=== PATIENT | male | born 1945 | race Caucasian/White ===

== ENCOUNTER 2018-08-08 20:45 | Emergency (ER) | payer MEDICARE ==
[~2018-08-08] VITALS: Ht 170.2 cm; Wt 74.4 kg
[~2018-08-08 20:45] MED LIST: ASPI325EC PO; ASPI81EC PO; ATEN50 PO; CALC1.25T PO; CEPH500 PO; CHOL10002 PO; Cardizem CD 12120 MG PO; Desyrel50 MG; HYDACE10B PO; HYDACE5 PO; LAVAP17G PO; MEDICAL MARIJUANA; OMEP20ER PO; OXYC10ER PO; Omeprazole20 M1 PO; PROBIOTICS; PROM25 PO; SUCR1; SUCR1 PO; Ultram50 MG PO
[2018-08-08 21:11] LABS: BASOPHILS ABSOLUTE AUTO 0.02 K/mm3 (0.00-0.23); BASOPHILS PERCENT AUTO 0 % (0-2); EOSINOPHILS ABSOLUTE AUTO 0.12 K/mm3 (0.00-0.68); EOSINOPHILS PERCENT AUTO 2 % (0-6); Hematocrit 40.3 % (37.0-53.0); IMMATURE GRAN ABSOLUTE AUTO 0.01 K/mm3 (0.00-0.10); IMMATURE GRAN PERCENT AUTO 0 % (0-1); LYMPHOCYTES ABSOLUTE AUTO 1.77 K/mm3 (0.84-5.20); LYMPHOCYTES PERCENT AUTO 31 % (21-46); MONOCYTES ABSOLUTE AUTO 0.55 K/mm3 (0.16-1.47); MONOCYTES PERCENT AUTO 10 % (4-13); Mean Corpuscular HGB 31.5 pg (26.0-34.0); Mean Corpuscular HGB Conc 34.7 g/dL (31.5-36.5); Mean Corpuscular Volume 91 fL (80-100); Mean Platelet Volume 11.2 fL (9.1-12.4); NEUTROPHILS ABSOLUTE AUTO 3.33 K/mm3 (1.96-9.15); NEUTROPHILS PERCENT AUTO 57 % (41-73); Platelet Count 177 K/mm3 (150-400); RDW Coefficient Variation 12.8 % (11.7-14.2); RDW Standard Deviation 42.5 fL (35.1-46.3); Red Blood Cell Count 4.45 M/mm3 (4.30-5.90)
[2018-08-08] MEDS ORDERED: ABAT250V IV (21:20)
[2018-08-08 21:31] LABS: Alanine Aminotransfer (ALT/SGP 22 U/L (12-78); Albumin, Blood 3.9 g/dL (3.4-5.0); Albumin/Globulin Ratio 1.3 (0.8-1.8); Alk Phos 64 U/L (50-136); Anion Gap 6 mmol/L (6-16); Aspartate Aminotrans (AST/SGOT 26 U/L (12-37); Bilirubin, Total 0.6 mg/dL (0.1-1.0); Blood Urea Nitrogen 20 mg/dL (8-24); Bun/Creatinine Ratio 25.1 (12.0-20.0); CO2, Blood 27 mmol/L (21-32); Calcium, Blood 8.6 mg/dL (8.5-10.1); Chloride, Blood 106 mmol/L (98-108); Globulin, Blood 3.1 g/dL (2.2-4.0); Glomerular Filtration Rate >60 (60-); Glucose, Blood 96 mg/dL (70-99); Potassium, Blood 4.3 mmol/L (3.5-5.5); Sodium, Blood 139 mmol/L (136-145); Troponin I <0.015 ng/mL (0.000-0.040)
[2018-09-26] MEDS ORDERED: ELIQUIS2.5 MG PO (16:03)
[2018-09-26] MEDS ORDERED: TAMS.4ER PO (16:03)
[2018-09-26] MEDS ORDERED: ATOR40TA PO (16:04)
== END 2018-08-08 22:13 | disposition home or self-care (01) ==
LOC: ER 20:45
PROVIDERS: Emergency Medicine
DX: R07.9 Chest pain, unspecified (principal); R00.1 Bradycardia, unspecified; Z88.8 Allergy status to other drugs, medicaments and biological substances; Z88.5 Allergy status to narcotic agent; Z79.899 Other long term (current) drug therapy; I10 Essential (primary) hypertension
CPT/HCPCS: 36415; 71046; 80053; 84484; 85025; 93005; 93010; 99285-25

== ENCOUNTER 2018-09-29 06:20 | Day surgery (SDC) | payer MEDICARE ==
[~2018-09-29] VITALS: Ht 167.6 cm; Wt 76.4 kg
[~2018-09-29 06:20] MED LIST changes: +ABAT250V IV; +ATOR40TA PO; +ELIQUIS2.5 MG PO; +TAMS.4ER PO
--- NOTE | 2018-09-29 14:01 | NUR ---
PT TR BAND COMPLETELY DEFLATED W/O OZZING NOTED. TR BAND AND ARM BOARD LEFT IN PLACE AND WILL MONITOR BEFORE CHANGEING TO CLEAR DSG. PT IS A/O AND PO PAIN MEDS BEGINING TO ASSIST SHOULDER PAIN. DENIES CHEST DISCOMFORT. BP IS SL ELEVATED AND WILL CONT TO MONITOR.
--- NOTE | 2018-09-29 15:30 | NUR ---
PT UP TO TOILET INDEPENDENTLY EXCEPT FOR ASSIST WITH LINES. DENIES PAIN AND DISTRESS AT TR SITE, SITE CLEAR, ARM BOARD ON AND PT IS UP IN CHAIR.
--- NOTE | 2018-09-29 16:58 | NUR ---
PT SITTING UP IN CHAIR FOR HOUR OR SO AND THEN INDEPENDENTLY RETURNED TO BED. TR SITE IS INTACT AND ARM BOARD IS IN PLACE. PT BP IS NOTED TO BE SL ELEVATED AND WILL CALL AND REPORT TO DR PELAEZ. PT REMAINS ASYMTOMATIC.
--- NOTE | 2018-09-29 18:09 | NUR ---
R TR IS NOTED WITH SMALL SOFT SWELLING AT THE SITE. NO OOZING OR HARD HEMATOMA NOTED. SMALL GAUZE PLACE SOFT BACK PRESSURE AND WILL MONIOR. PT VS NOTED AND HAVE IMPROVED W/O MEDICATION INTERVENTION. NO S/S OF PAIN OR DISTRESS.
--- NOTE | 2018-09-29 19:30 | NUR ---
ASSUME CARE; REPORT RECIEVED FROM OFF GOING RN SERGEY. MONITOR INTACT SHOWING SINUS LUI-SINUS RHYTHM. HEART RATE 50'S-60'S. DENIES DISCOMFORT. LUNG SOUNDS CLEAR RESPIRATIONS REGULAR AND EASY ON ROOM AIR. TR BAND SITE CLEAR/INTACT WITH OCCULSIVE DRESSING INTACT. ABDOMEN SOFT WITH BOWEL SOUNDS FOUR QUADS. VOIDS KAREN URINE. GAIT STEADY IN ROOM. PEDAL PULSES PRESENT NO EDEMA NOTED. AT BEDSIDE SPENDING NOC IN ROOM. CONTINUE TO MONITOR AND REPORT CHANGE IN PATIENT CONDITION.
--- NOTE | 2018-09-30 06:15 | NUR ---
SHIFT SUMMARY; RESTS QUIETLY WHEN UNDISTURBED MONITOR INTACT SHOWING SINUS LUI SINUS RHYTHM. HEART RATE 46-60'S. DENIES DISCOMFORT. TR BAND SITE CLEAR SOFT WITH OCCULSIVE DRESSING IN PLACE. LUNG SOUNDS CLEAR RESPIRATIONS REGULAR AND EASY ON ROOM AIR. SPO2 95-98%. ABDOMEN SOFT WITH BOWEL SOUNDS FOUR QUADS. VOIDS KAREN URINE PER URINAL GAIT STEADY IN ROOM AND TO TOILET. ON COT IN ROOM ATTENTIVE TO NEEDS CARES. CONTINUE TO MONITOR AND REPORT CHANGE IN PATIENT CONDITION.
[2018-09-30] MEDS ORDERED: ELIQUIS2.5 MG PO (09:49)
[2018-09-30] MEDS ORDERED: PANT20 PO (09:51)
[2018-09-30] MEDS ORDERED: CLOP75 PO (09:51)
[2018-09-30] MEDS ORDERED: Aspirin EC81 MG PO (10:09)
--- NOTE | 2018-09-30 10:24 | NUR ---
PT D/C INSTRUCTIONS GIVE, MEDICATION CHANGES INSTRUCTED, IV D/C INTACT AND SITE W/O OOZING, R TR WITH SOFT VERY SLIGHT SWELLING AND NO DETECTED HEMATOMA. PT AWARE OF BLEEDING POTENTIAL AND NEW MEDICATION. MEDS CALLED TO [facility]. PT W/C TO [facility] PER [facility] DIRECTOR [place] AND ATTENTING.
--- NOTE | 2018-09-30 10:33 | NUR ---
PT CARDIAC REFERAL CALLED IN AND MESSAGE LEFT ON PHONE.
--- NOTE | 2018-09-30 10:41 | NUR ---
LATE AM ASSESSMENT... PT HAS DENIES C.P. , SOB, AND R TR SITE IS INTACT AND PT PROTECTING SITE. PT ON RA W/O SOB, IN SB, VSS NOTED, PT IS VOIDING, HAS NO EDEMA AND HAS NOT HAD ANY HEART BURN POST EQUIPMENT MONITOR PHOTOTYPESETTING. PT IS SB RHYTHM.
== END 2018-09-30 10:25 | disposition home or self-care (01) ==
LOC: MHTC 06:20 → ICUE 09:40 → ENPENDDIS 09-30 08:46 → MHTC 09-30 10:25
DX: I25.10 Atherosclerotic heart disease of native coronary artery without angina pectoris (principal); I48.0 Paroxysmal atrial fibrillation; I10 Essential (primary) hypertension; Z79.899 Other long term (current) drug therapy; Z79.01 Long term (current) use of anticoagulants; Z87.891 Personal history of nicotine dependence; Z88.1 Allergy status to other antibiotic agents; Z88.6 Allergy status to analgesic agent; Z88.5 Allergy status to narcotic agent; Z91.011 Allergy to milk products; Z91.048 Other nonmedicinal substance allergy status
CPT/HCPCS: 85347; 92978; 93458; 93571; 99152; 99153; C1725; C1753; C1769; C1874; C1887; C1894; C9113; C9600; J1644; J2250; J3010; J7030; Q9967

== ENCOUNTER 2018-10-06 10:51 | Emergency (ER) | payer MEDICARE ==
[~2018-10-06] VITALS: Ht 170.2 cm; Wt 72.6 kg
[~2018-10-06 10:51] MED LIST changes: +Aspirin EC81 MG PO; +CLOP75 PO; +PANT20 PO
[2018-10-06] MEDS ORDERED: TRAZ50 (12:11)
== END 2018-10-06 15:03 | disposition home or self-care (01) ==
LOC: ER 10:51
DX: R20.2 Paresthesia of skin (principal); I10 Essential (primary) hypertension; I25.10 Atherosclerotic heart disease of native coronary artery without angina pectoris; I48.91 Unspecified atrial fibrillation; Z98.61 Coronary angioplasty status; Z79.899 Other long term (current) drug therapy; Z79.82 Long term (current) use of aspirin; Z79.02 Long term (current) use of antithrombotics/antiplatelets
CPT/HCPCS: 93931; 93971; 99284-25

== ENCOUNTER 2018-11-25 10:06 | Emergency (ER) | payer MEDICARE ==
[~2018-11-25] VITALS: Ht 170.2 cm; Wt 72.6 kg
[~2018-11-25 10:06] MED LIST changes: +TRAZ50
== END 2018-11-25 12:56 | disposition home or self-care (01) ==
LOC: ER 10:06
DX: R04.0 Epistaxis (principal); I10 Essential (primary) hypertension; I48.91 Unspecified atrial fibrillation; Z88.8 Allergy status to other drugs, medicaments and biological substances; Z91.011 Allergy to milk products; Z79.899 Other long term (current) drug therapy; Z79.01 Long term (current) use of anticoagulants; Z79.02 Long term (current) use of antithrombotics/antiplatelets; Z79.82 Long term (current) use of aspirin
CPT/HCPCS: 30901; 99283-25

== ENCOUNTER 2019-02-24 04:10 | Emergency (ER) | payer MEDICARE ==
[~2019-02-24] VITALS: Ht 170.2 cm; Wt 74.8 kg
[~2019-02-24 04:10] MED LIST changes: -HYDACE10B PO; +NORCO 10-325 T1 EACH PO; -TRAZ50; +TRAZ50 PO
[2019-02-24] MEDS ORDERED: Sotalol80 MG PO (04:22)
== END 2019-02-24 05:20 | disposition home or self-care (01) ==
LOC: ER 04:10
DX: R04.0 Epistaxis (principal); I48.91 Unspecified atrial fibrillation; I10 Essential (primary) hypertension; M19.90 Unspecified osteoarthritis, unspecified site; Z88.6 Allergy status to analgesic agent; Z88.8 Allergy status to other drugs, medicaments and biological substances; Z79.899 Other long term (current) drug therapy
CPT/HCPCS: 30903; 99283-25

== ENCOUNTER 2021-08-07 10:57 | Emergency (ER) | payer MEDICARE ==
[~2021-08-07] VITALS: Ht 170.2 cm; Wt 72.6 kg
[~2021-08-07 10:57] MED LIST changes: +ATEN100 PO; +Aspir 8181 MG PO; +HYDACE10B PO; +IRBE75 PO; -NORCO 10-325 T1 EACH PO; +PANT40 PO; +Sotalol80 MG PO; +Viagra100 MG PO
[2021-08-07] MEDS ORDERED: HYDR1TAB94 PO (12:05)
== END 2021-08-07 12:08 | disposition home or self-care (01) ==
LOC: ER 10:57
DX: S76.311A Strain of muscle, fascia and tendon of the posterior muscle group at thigh level, right thigh, initial encounter (principal); I10 Essential (primary) hypertension; Z79.82 Long term (current) use of aspirin; Z79.899 Other long term (current) drug therapy; Z95.5 Presence of coronary angioplasty implant and graft; Z87.891 Personal history of nicotine dependence; X58.XXXA Exposure to other specified factors, initial encounter
CPT/HCPCS: 99283

== ENCOUNTER 2024-03-30 14:01 | Emergency (ER) | payer OTHER ==
[~2024-03-30] VITALS: Ht 172.7 cm; Wt 74.8 kg
[~2024-03-30 14:01] MED LIST changes: +HYDR1TAB94 PO
[2024-03-30 14:38] LABS: BASOPHILS ABSOLUTE AUTO 0.01 K/mm3 (0.00-0.23); BASOPHILS PERCENT AUTO 0 % (0-2); EOSINOPHILS ABSOLUTE AUTO 0.11 K/mm3 (0.00-0.68); EOSINOPHILS PERCENT AUTO 2 % (0-6); Hematocrit 39.2 % (37.0-53.0); Hemoglobin 13.9 g/dL (13.5-17.5); IMMATURE GRAN ABSOLUTE AUTO 0.01 K/mm3 (0.00-0.10); IMMATURE GRAN PERCENT AUTO 0 % (0-1); LYMPHOCYTES ABSOLUTE AUTO 1.41 K/mm3 (0.84-5.20); LYMPHOCYTES PERCENT AUTO 26 % (21-46); MONOCYTES ABSOLUTE AUTO 0.56 K/mm3 (0.16-1.47); MONOCYTES PERCENT AUTO 10 % (4-13); Mean Corpuscular HGB 31.1 pg (26.0-34.0); Mean Corpuscular HGB Conc 35.5 g/dL (31.5-36.5); Mean Corpuscular Volume 88 fL (80-100); Mean Platelet Volume 10.6 fL (9.1-12.4); NEUTROPHILS ABSOLUTE AUTO 3.42 K/mm3 (1.96-9.15); NEUTROPHILS PERCENT AUTO 62 % (41-73); Platelet Count 218 K/mm3 (150-400); RDW Coefficient Variation 13.1 % (11.7-14.2); RDW Standard Deviation 42.3 fL (35.1-46.3); Red Blood Cell Count 4.47 M/mm3 (4.30-5.90); White Blood Cell Count 5.52 K/mm3 (4.00-11.30)
[2024-03-30 15:14] LABS: Albumin, Blood 3.7 g/dL (3.4-5.0); Albumin/Globulin Ratio 1.1 (0.8-1.8); Bilirubin, Total 0.7 mg/dL (0.1-1.0); Bun/Creatinine Ratio 16.3 (12.0-20.0); Calcium, Blood 9.3 mg/dL (8.5-10.1); Creatinine, Blood 1.04 mg/dL (0.60-1.20); Globulin, Blood 3.3 g/dL (2.2-4.0); Potassium, Blood 4.5 mmol/L (3.5-5.5)
[2024-03-30 16:23] VITALS: BP 126/77
== END 2024-03-30 17:26 | disposition home or self-care (01) ==
LOC: ER 14:01
PROVIDERS: Student in an Organized Health Care Education/Training Program
DX: J44.9 Chronic obstructive pulmonary disease, unspecified (principal); R07.89 Other chest pain; I10 Essential (primary) hypertension; Z87.891 Personal history of nicotine dependence; Z79.02 Long term (current) use of antithrombotics/antiplatelets; Z79.82 Long term (current) use of aspirin; Z79.899 Other long term (current) drug therapy; Z88.6 Allergy status to analgesic agent; Z91.040 Latex allergy status
CPT/HCPCS: 71046; 80053; 83690; 84484; 85025; 93005; 93010; 99284-25

== ENCOUNTER 2024-05-14 07:45 | Emergency (ER) | payer OTHER ==
[~2024-05-14] VITALS: Ht 170.2 cm; Wt 73.9 kg
[2024-05-14] MEDS ORDERED: NS 1,000 ML IV SCH (08:05)
[2024-05-14] MEDS ORDERED: Morphine Sulfate 4 MG/1 ML Injection IV ONE (08:05)
[2024-05-14] MEDS ORDERED: Ondansetron HCl 2 MG / ML 2ML Vial IV ONE (08:05)
[2024-05-14 08:11] LABS: BASOPHILS ABSOLUTE AUTO 0.02 K/mm3 (0.00-0.23); BASOPHILS PERCENT AUTO 0 % (0-2); EOSINOPHILS ABSOLUTE AUTO 0.07 K/mm3 (0.00-0.68); EOSINOPHILS PERCENT AUTO 1 % (0-6); Hematocrit 40.7 % (37.0-53.0); Hemoglobin 14.3 g/dL (13.5-17.5); IMMATURE GRAN ABSOLUTE AUTO 0.03 K/mm3 (0.00-0.10); IMMATURE GRAN PERCENT AUTO 0 % (0-1); LYMPHOCYTES ABSOLUTE AUTO 0.96 K/mm3 (0.84-5.20); LYMPHOCYTES PERCENT AUTO 9 % (21-46); MONOCYTES PERCENT AUTO 7 % (4-13); Mean Corpuscular HGB 30.8 pg (26.0-34.0); Mean Corpuscular HGB Conc 35.1 g/dL (31.5-36.5); Mean Corpuscular Volume 88 fL (80-100); Mean Platelet Volume 10.9 fL (9.1-12.4); NEUTROPHILS ABSOLUTE AUTO 9.24 K/mm3 (1.96-9.15); NEUTROPHILS PERCENT AUTO 83 % (41-73); Platelet Count 213 K/mm3 (150-400); RDW Coefficient Variation 13.4 % (11.7-14.2); RDW Standard Deviation 43.6 fL (35.1-46.3); Red Blood Cell Count 4.64 M/mm3 (4.30-5.90); White Blood Cell Count 11.12 K/mm3 (4.00-11.30)
[2024-05-14 08:24] LABS: Albumin, Blood 3.9 g/dL (3.4-5.0); Albumin/Globulin Ratio 1.2 (0.8-1.8); Bilirubin, Total 0.8 mg/dL (0.1-1.0); Bun/Creatinine Ratio 18.3 (12.0-20.0); Calcium, Blood 9.4 mg/dL (8.5-10.1); Creatinine, Blood 0.99 mg/dL (0.60-1.20); Globulin, Blood 3.3 g/dL (2.2-4.0); Magnesium, Blood 2.1 mg/dL (1.6-2.4); Potassium, Blood 4.3 mmol/L (3.5-5.5); Total Protein, Blood 7.2 g/dL (6.4-8.2)
[2024-05-14] MEDS ORDERED: HYDROmorphone HCl/Pf 1MG SYR IV ONE (08:40)
[2024-05-14] MEDS ORDERED: PRAV20 PO (09:01)
[2024-05-14] MEDS ORDERED: ATENOLOL25 MG PO (09:01)
[2024-05-14] MEDS ORDERED: JARDIANCE10 MG PO (09:01)
[2024-05-14 09:07] LABS: Source, Urine Clean Catch
[2024-05-14 09:19] LABS: Appearance, Urine Clear (Clear); Bilirubin, Urine Neg (Neg); Blood, Urine 4+ (Neg); Color, Urine Yellow (P-Yellow); Glucose Qualitative, Urine 4+ (Neg); Ketones, Urine Neg (Neg); Leukocyte Esterase, Urine Neg (Neg); Nitrite, Urine Neg (Neg); Protein, Urine Neg (Neg); Urobilinogen, Urine NORM (Normal)
[2024-05-14 09:52] LABS: Red Blood Cells, Urine 25-50 /hpf (0-2); White Blood Cells, Urine 0-2 /hpf (0-5)
[2024-05-14 09:54] LABS: Bacteria Rare /hpf; Mucus Light (0-Heavy); Squamous Epithelial Cells Rare /hpf (Few)
[2024-05-14] MEDS ORDERED: ONDA4 PO (10:15)
[2024-05-14] MEDS ORDERED: ACET500 PO (10:15)
[2024-05-14] MEDS ORDERED: OXYACE7.5T PO (10:15)
[2024-05-14] MEDS ORDERED: TAMS.4ER PO (10:15)
[2024-05-14 10:26] VITALS: BP 156/84
== END 2024-05-14 10:35 | disposition home or self-care (01) ==
LOC: ER 07:45
PROVIDERS: Emergency Medicine
DX: N13.2 Hydronephrosis with renal and ureteral calculous obstruction (principal); I10 Essential (primary) hypertension; E78.5 Hyperlipidemia, unspecified; Z87.891 Personal history of nicotine dependence; Z79.82 Long term (current) use of aspirin; Z79.02 Long term (current) use of antithrombotics/antiplatelets; Z79.899 Other long term (current) drug therapy; Z88.6 Allergy status to analgesic agent; Z91.040 Latex allergy status
CPT/HCPCS: 51701; 74177; 80053; 81001; 83690; 83735; 85025; 96361; 96374; 96375; 99285-25; J1171; J2270; J2405; J7030; Q9967

== ENCOUNTER 2024-06-30 09:29 | Observation (INO) | payer OTHER ==
[2024-06-30] VITALS (17 sets, daily range): BP systolic 117–163; BP diastolic 64–109
[~2024-06-30] VITALS: Ht 170.2 cm; Wt 71.0 kg
[~2024-06-30 09:29] MED LIST changes: +ACET500 PO; +ATENOLOL25 MG PO; +FLOMAX0.4 MG PO; +JARDIANCE10 MG PO; +NITR.4SL; +NITR.4SL SL; +ONDA4 PO; +OXYACE7.5T PO; +PRAV20 PO; +SOAANZ20 M1 PO; +TRAZ100 PO
[2024-06-30] MEDS ORDERED: NS 1,000 ML IV ONE ×2 (10:04→10:09)
[2024-06-30] MEDS ORDERED: NS 250 ML IV ONE (10:04)
[2024-06-30] MEDS ORDERED: Heparin Sodium 1000 Units/ML 10ML MDV ONE ×2 (10:04→10:58)
[2024-06-30] MEDS ORDERED: Verapamil HCL 2.5 MG/ML 2ML Injection ONE (10:04)
[2024-06-30] MEDS ORDERED: FentaNYL Citrate 50 MCG/ML 2 ML Injection ONE ×3 (10:08→13:49)
[2024-06-30] MEDS ORDERED: Midazolam HCl 1MG / ML 2ML Vial ONE (10:09)
[2024-06-30] MEDS ORDERED: PRAV20 PO (10:21)
[2024-06-30] MEDS ORDERED: Tirofiban HCL Monohydrate 3.75 MG/15 ML Vial ONE (10:55)
[2024-06-30] MEDS ORDERED: Aspirin 325 MG Tab ONE (10:55)
[2024-06-30] MEDS ORDERED: NS 500 ML IV ONE (10:58)
[2024-06-30] MEDS ORDERED: Clopidogrel Bisulfate 300 MG TABLET ONE (12:41)
--- NOTE | 2024-06-30 13:00 | NUR ---
RETURNED FROM TDP DISPLAYS ANALYST, RESTING IN CHAIR. RADIAL SITE INTACT, VSS. BROUGHT PEPSI FOR PATIENT. FAMILY ARRIVED AND AT BEDSIDE, DISCUSSED TIMEFRAME FOR KEEPING NO PRESSURE ON WRIST AND BEING CAREFUL WITH ARM WELL HEAVY LIFTING TIMEFRAME. DENIES CONCERNS OTHERWISE, PENDING D/C OTHERWISE.
--- NOTE | 2024-06-30 13:31 | NUR ---
CARE ASSUMED OF PATIENT. RIGHT TR BAND SITE REVIEWED, WNL. PT SITTING UP IN RECLINER VISITING WITH FAMILY AND EATING LUNCH, SALVATORE WELL. DR SHARMA IN TO SEE PATIENT.
[2024-06-30] MEDS ORDERED: FentaNYL Citrate 50 MCG/ML 2 ML Injection IV ONE (13:55)
--- NOTE | 2024-06-30 13:55 | NUR ---
PATIENT C/O 7-8/10 CHEST PAIN, "ACHE", PT POINTS TO MID EPIGASTRIC AREA. PT DOES NOT APPEAR TO BE IN ACUTE DISTRESS, PT IS CALM, BUT STATES SOME ANXIETY. VSS. DR SHARMA CALLED IMMEDIATELY. PT TRANSFERED TO BED. STAT EKG COMPLETED, SHOWS NSR. DR SHARMA AT BEDSIDE. FENTANYL 50MCG IV ORDERED AND GIVEN. PT'S PAIN DECREASED FROM 8/10 TO 6/10 INITIALLY AND NOW STATES PAIN 2-3/10. PT TO BE ADMITTED OVERNIGHT FOR OBS. DR SHARMA SPOKE DIRECTLY TO DR ADRIAN.
--- NOTE | 2024-06-30 14:15 | NUR ---
DR ADRIAN AT BEDSIDE SEEING PATIENT.
[2024-06-30] MEDS ORDERED: FentaNYL Citrate 50 MCG/ML 2 ML Injection IV PRN (14:35)
[2024-06-30] MEDS ORDERED: Ondansetron HCl 2 MG / ML 2ML Vial IV PRN (14:35)
[2024-06-30] MEDS ORDERED: Acetaminophen 325 MG TABLET PO PRN (14:40)
[2024-06-30] MEDS ORDERED: TraZODone HCl 100 MG Tab PO PRN (14:45)
[2024-06-30] MEDS ORDERED: HYDROcodone 10-APAP 325 TAB PO PRN (14:50)
[2024-06-30] MEDS ORDERED: Irbesartan 150 MG Tab PO SCH (15:00)
[2024-06-30] MEDS ORDERED: Atenolol 25 MG Tab PO SCH (15:00)
--- NOTE | 2024-06-30 15:21 | NUR ---
PATIENT TO PCU 16 AT 1525. BEDSIDE REPORT GIVEN TO GEORGE PEÑALOZA. RIGHT TR BAND SITE REVIEWED; WNL. PT STATES CP 2/10; STATES ACCEPTABLE/TOLERABLE PAIN. VSS.
--- NOTE | 2024-06-30 17:54 | NUR ---
PT ARRIVED IN THE ROOM FROM [facility], PT HAS RIGHT RADIAL SITE NOW WITH CLEAR DRESSING INTACT NO HEMATOMA OR BLEEDING NOTED ON THE SITE, VITALS STABLE, HRR SR/SB 70-100'S, SBP 140'S, SATS ABOVE 95% ON RA, AFEBRILE. PT RECEIVED 3 STENTS. TO MONITOR OVER NIGHT AND POSSIBLY DC IN AM IF STABLE. PT EATING DINNER AT THIS TIME TOLERATING WELL. NO OTHER ISSUES RPORTED, USES URINAL FOR VOIDING. WILL REPORT TO ONCOMING SHIFT
[2024-06-30] MEDS ORDERED: Atorvastatin 40 MG Tab PO SCH (18:00)
[2024-06-30] MEDS ORDERED: Tamsulosin HCl 0.4 MG Cap PO SCH (18:00)
[2024-07-01 00:30] VITALS: BP 128/86
[2024-07-01 04:52] LABS: BASOPHILS ABSOLUTE AUTO 0.02 K/mm3 (0.00-0.23); BASOPHILS PERCENT AUTO 0 % (0-2); EOSINOPHILS ABSOLUTE AUTO 0.13 K/mm3 (0.00-0.68); EOSINOPHILS PERCENT AUTO 2 % (0-6); Hematocrit 39.8 % (37.0-53.0); Hemoglobin 13.7 g/dL (13.5-17.5); IMMATURE GRAN ABSOLUTE AUTO 0.02 K/mm3 (0.00-0.10); IMMATURE GRAN PERCENT AUTO 0 % (0-1); LYMPHOCYTES ABSOLUTE AUTO 1.23 K/mm3 (0.84-5.20); LYMPHOCYTES PERCENT AUTO 17 % (21-46); MONOCYTES ABSOLUTE AUTO 0.75 K/mm3 (0.16-1.47); MONOCYTES PERCENT AUTO 11 % (4-13); Mean Corpuscular HGB 30.7 pg (26.0-34.0); Mean Corpuscular HGB Conc 34.4 g/dL (31.5-36.5); Mean Corpuscular Volume 89 fL (80-100); Mean Platelet Volume 10.7 fL (9.1-12.4); NEUTROPHILS ABSOLUTE AUTO 4.97 K/mm3 (1.96-9.15); NEUTROPHILS PERCENT AUTO 70 % (41-73); Platelet Count 201 K/mm3 (150-400); RDW Standard Deviation 42.5 fL (35.1-46.3); Red Blood Cell Count 4.46 M/mm3 (4.30-5.90); White Blood Cell Count 7.12 K/mm3 (4.00-11.30)
[2024-07-01 05:08] VITALS: BP 126/73
[2024-07-01 05:13] LABS: Bun/Creatinine Ratio 17.9 (12.0-20.0); Calcium, Blood 9.1 mg/dL (8.5-10.1); Creatinine, Blood 0.84 mg/dL (0.60-1.20)
[2024-07-01] MEDS ORDERED: Pantoprazole Sodium 40 MG Tab PO SCH (06:00)
--- NOTE | 2024-07-01 06:54 | NUR ---
SHIFT SUMMARY: PT IS A&OX4, PLEASANT AND COOPERATIVE WITH CARE. VSS ON RA, SATS >93%. SR 60'S-70'S. C/O MILD CHEST DISCOMFORT, BUT HAS IMPROVED SINCE ARRIVAL TO THE HOSPITAL. DENIES PAIN OTHERWISE. RIGHT RADIAL SITE SOFT TO PALPATE, NO HEMATOMA. DRESSING IS INTACT WITH SCANT AMOUNT OF DRIED BLOOD, NO CHANGES THIS SHIFT. TOLERATING A HEART HEALTHY DIET. VOIDING INDEPENDENTLY IN URINAL AT BEDSIDE, ADEQUATE AMOUNTS OF CLEAR YELLOW URINE. NO BM THIS SHIFT. PT HAS NOT BEEN OOB THIS SHIFT, REPOSITIONS HIMSELF IN BED. BED IN LOWEST POSITION, CALL LIGHT WITHIN REACH.
--- NOTE | 2024-07-01 07:29 | NUR ---
BEDSIDE shift report from ANABELA Johnson. The pt appears to be sleeping, Respirations even and unlabored.
[2024-07-01 08:11] VITALS: BP 133/80
--- NOTE | 2024-07-01 08:19 | NUR ---
Dr. Hearn and Dr. Veliz rounded on the patient. Plan is for discharge today.
[2024-07-01] MEDS ORDERED: Aspirin 81 MG TabEC PO SCH (09:00)
[2024-07-01] MEDS ORDERED: Empagliflozin 10 MG TAB PO SCH (09:00)
[2024-07-01] MEDS ORDERED: Enoxaparin 40 MG/0.4 ML SYR SC SCH (09:00)
[2024-07-01] MEDS ORDERED: Clopidogrel Bisulfate 75 MG Tab PO SCH (09:00)
[2024-07-01] MEDS ORDERED: Pravastatin Sodium 20 MG Tab PO SCH (09:00)
--- NOTE | 2024-07-01 11:13 | NUR ---
Pt given discharge instructions and questions answered. IV and telemetry removed. Pt declined wheelchair for discarge; he walked out to the vehicle which his family member was driving.
[2024-07-02] MEDS ORDERED: Torsemide 10 MG TAB PO SCH (09:00)
== END 2024-07-01 11:05 | disposition home or self-care (01) ==
LOC: MHTC 09:29 → PCU 09:31
PROVIDERS: Student in an Organized Health Care Education/Training Program; ADMIT Hospitalist
DX: I25.112 Atherosclerotic heart disease of native coronary artery with refractory angina pectoris (principal); I11.0 Hypertensive heart disease with heart failure; I50.30 Unspecified diastolic (congestive) heart failure; E78.5 Hyperlipidemia, unspecified; G47.00 Insomnia, unspecified; N40.0 Benign prostatic hyperplasia without lower urinary tract symptoms; K21.9 Gastro-esophageal reflux disease without esophagitis; Z88.6 Allergy status to analgesic agent; Z91.011 Allergy to milk products; Z88.0 Allergy status to penicillin; Z91.048 Other nonmedicinal substance allergy status; Z79.899 Other long term (current) drug therapy; Z95.5 Presence of coronary angioplasty implant and graft
CPT/HCPCS: 36415; 76937; 80048; 85025; 85347; 93005; 93010; 93454; 94762; 99152; 99153; A9270; C1725; C1769; C1874; C1887; C1894; C9600; G0378; J1644; J2250; J3010; J3246; J7030; J7040; J7050; Q9967

== ENCOUNTER 2024-12-06 14:30 | Inpatient (IN) | payer OTHER ==
[~2024-12-06] VITALS: Ht 165.1 cm; Wt 66.4 kg
[2024-12-06 14:55] LABS: BASOPHILS ABSOLUTE AUTO 0.02 K/mm3 (0.00-0.23); BASOPHILS PERCENT AUTO 0 % (0-2); EOSINOPHILS ABSOLUTE AUTO 0.08 K/mm3 (0.00-0.68); EOSINOPHILS PERCENT AUTO 1 % (0-6); Hematocrit 44.0 % (37.0-53.0); Hemoglobin 15.3 g/dL (13.5-17.5); IMMATURE GRAN ABSOLUTE AUTO 0.01 K/mm3 (0.00-0.10); IMMATURE GRAN PERCENT AUTO 0 % (0-1); LYMPHOCYTES ABSOLUTE AUTO 1.15 K/mm3 (0.84-5.20); LYMPHOCYTES PERCENT AUTO 18 % (21-46); MONOCYTES ABSOLUTE AUTO 0.70 K/mm3 (0.16-1.47); MONOCYTES PERCENT AUTO 11 % (4-13); Mean Corpuscular HGB Conc 34.8 g/dL (31.5-36.5); Mean Corpuscular Volume 89 fL (80-100); NEUTROPHILS ABSOLUTE AUTO 4.37 K/mm3 (1.96-9.15); NEUTROPHILS PERCENT AUTO 69 % (41-73); NRBC ABSOLUTE 0.00 K/mm3 (0.00-0.02); NRBC Auto 0.0 /100 WBC (0.0-0.2); Platelet Count 208 K/mm3 (150-400); RDW Coefficient Variation 13.9 % (11.7-14.2); RDW Standard Deviation 45.1 fL (35.1-46.3)
[2024-12-06 15:15] LABS: Alanine Aminotransfer (ALT/SGP 21.0 U/L (12-78); Albumin, Blood 3.9 g/dL (3.4-5.0); Albumin/Globulin Ratio 1.2 (0.8-1.8); Anion Gap 6.0 mmol/L (3-11); Aspartate Aminotrans (AST/SGOT 28.0 U/L (12-37); Bilirubin, Total 0.8 mg/dL (0.1-1.0); Blood Urea Nitrogen 16.0 mg/dL (8-24); CO2, Blood 29.0 mmol/L (21-32); Calcium, Blood 9.4 mg/dL (8.5-10.1); Chloride, Blood 106.0 mmol/L (98-108); Creatinine, Blood 0.82 mg/dL (0.60-1.20); Globulin, Blood 3.3 g/dL (2.2-4.0); Glucose, Blood 101.0 mg/dL (70-99); Potassium, Blood 4.2 mmol/L (3.5-5.5); Sodium, Blood 137.0 mmol/L (136-145); Total Protein, Blood 7.2 g/dL (6.4-8.2)
[2024-12-06] MEDS ORDERED: Ondansetron HCl 2 MG / ML 2ML Vial IV PRN (16:45)
[2024-12-06] MEDS ORDERED: FLU VACC TS2025(65UP)/MF59C/PF 45 MCG/0.5 ML SYRINGE IM SCH (16:50)
[2024-12-06 18:19] VITALS: BP 120/93
[2024-12-06 19:43] VITALS: BP 131/96
[2024-12-06 23:57] VITALS: BP 158/88
[2024-12-07 00:55] VITALS: BP 148/99
--- NOTE | 2024-12-07 01:03 | NUR ---
MD NOTIFICATION NOTE: PATIENT CALLED AT 1255, REPORTS CP "DULL ACHE PAIN LIKE 08/20." VITALS TAKEN SBP 148/99, HR AT 71 BPM. THIS RN CALLED [facility] DRIER TO INQUIRE IF ANY CHANGES ON RHYTHM. STANDING ORDER PRN ECG. COMPLETED c NORMAL RESULT. NOTIFIED DR. ZHENG, RECEIVED ORDER TO GIVE FENTANYL IV 25 MCG EVERY 4 HRS FOR CP.
[2024-12-07] MEDS ORDERED: FentaNYL Citrate 50 MCG/ML 2 ML Injection IV PRN (01:15)
[2024-12-07 05:14] VITALS: BP 143/76
--- NOTE | 2024-12-07 05:29 | NUR ---
SHIFT SUMMARY: PATIENT HAD ONE TIME EPISODE OF CP AROUND 1255 RESTING AND LAYING FLAT IN BED. PATIENT REPORTS IT RESSOLVED AFTER REPOSITIONING AND HOB ELEVATED. DR. ZHENG IS AWARE. PATIENT ON TELE SB/SR IN HIGH 50'S TO 70'S c OCCASIONAL PVC, NO CHANGES IN RHYTHM T/O SHIFT PER HOGSHEAD DUMPER. PATIENT NPO SINCE BEGINNING OF SHIFT PER ORDER FOR STRESS TEST SOMETIMES TODAY. PATIENT A/OX4, PLEASANT, COOPERATIVE c CARE, CALLS APPROPRIATELY AND MAKE NEEDS KNOWN. PATIENT HAS PIV TO R FOREARM INFUSING LR AT 75 MLS/HR. VITAL SIGNS REVIEWED. BED IN LOWEST POSITION. CALL LIGHT IN REACH.
[2024-12-07 05:40] LABS: BASOPHILS ABSOLUTE AUTO 0.01 K/mm3 (0.00-0.23); BASOPHILS PERCENT AUTO 0 % (0-2); EOSINOPHILS ABSOLUTE AUTO 0.08 K/mm3 (0.00-0.68); EOSINOPHILS PERCENT AUTO 1 % (0-6); Hematocrit 42.5 % (37.0-53.0); Hemoglobin 14.7 g/dL (13.5-17.5); IMMATURE GRAN ABSOLUTE AUTO 0.01 K/mm3 (0.00-0.10); IMMATURE GRAN PERCENT AUTO 0 % (0-1); LYMPHOCYTES ABSOLUTE AUTO 1.26 K/mm3 (0.84-5.20); LYMPHOCYTES PERCENT AUTO 20 % (21-46); MONOCYTES ABSOLUTE AUTO 0.60 K/mm3 (0.16-1.47); MONOCYTES PERCENT AUTO 10 % (4-13); Mean Corpuscular HGB Conc 34.6 g/dL (31.5-36.5); Mean Corpuscular Volume 88 fL (80-100); NEUTROPHILS ABSOLUTE AUTO 4.22 K/mm3 (1.96-9.15); NEUTROPHILS PERCENT AUTO 68 % (41-73); NRBC ABSOLUTE 0.00 K/mm3 (0.00-0.02); NRBC Auto 0.0 /100 WBC (0.0-0.2); Platelet Count 180 K/mm3 (150-400); RDW Coefficient Variation 13.8 % (11.7-14.2); RDW Standard Deviation 44.4 fL (35.1-46.3)
[2024-12-07 05:59] LABS: Alanine Aminotransfer (ALT/SGP 17.0 U/L (12-78); Albumin, Blood 3.7 g/dL (3.4-5.0); Albumin/Globulin Ratio 1.2 (0.8-1.8); Anion Gap 8.0 mmol/L (3-11); Aspartate Aminotrans (AST/SGOT 18.0 U/L (12-37); Bilirubin, Total 1.2 mg/dL (0.1-1.0); Blood Urea Nitrogen 14.0 mg/dL (8-24); CO2, Blood 26.0 mmol/L (21-32); Calcium, Blood 9.3 mg/dL (8.5-10.1); Chloride, Blood 108.0 mmol/L (98-108); Creatinine, Blood 0.75 mg/dL (0.60-1.20); Globulin, Blood 3.0 g/dL (2.2-4.0); Glucose, Blood 88.0 mg/dL (70-99); Magnesium, Blood 2.3 mg/dL (1.6-2.4); Potassium, Blood 3.8 mmol/L (3.5-5.5); Sodium, Blood 138.0 mmol/L (136-145); Total Protein, Blood 6.7 g/dL (6.4-8.2)
[2024-12-07 07:15] VITALS: BP 147/96
[2024-12-07] MEDS ORDERED: Enoxaparin 40 MG/0.4 ML SYR SC SCH (09:00)
[2024-12-07 11:43] VITALS: BP 137/87
[2024-12-07] MEDS ORDERED: HYDROcodone 5-APAP 325 TAB PO PRN (12:50)
[2024-12-07 16:00] VITALS: BP 133/84
--- NOTE | 2024-12-07 17:31 | NUR ---
SHIFT SUMMARY PT IS A/OX4. INDEPENDENT IN THE ROOM. NE REPORTING DULL CHEST/STERNAL PAIN THROUGHOUT THIS SHIFT THAT INCREASES WITH ACTIVITY. FIRST PART OF STRESS TEST COMPLETED. SECOND PART TO BE COMPLETED TOMORROW MORNING. NO CAFFEINE TO BE GIVEN PRIOR TO TEST, NPO 4 HOURS PRIOR TO TEST. FAMILY AT BEDSIDE. LR RUNNING @ 75 ML/HR. ON TELE RUNNING NORMAL SINUS RYTHYM. PT IS PLEASANT AND COOPERATIVE WITH CARE AND CALLS APPROPRIATELY USING THE CALL LIGHT.
[2024-12-07 20:10] VITALS: BP 139/82
[2024-12-08] VITALS (29 sets, daily range): BP systolic 111–170; BP diastolic 69–111
--- NOTE | 2024-12-08 04:05 | NUR ---
SHIFT SUMMARY PATIENT IS ALERT AND ORIENTED. PATIENT HAS HAD NO ACUTE EVENTS THIS SHIFT. VITAL SIGNS REVIEWED. PATIENT HAS HAD NO COMPLAINTS OF CHEST PAIN THIS SHIFT. PATIENT HAS BEEN IND IN ROOM THIS SHIFT. PATIENT HAS HAD NO COMPLAINTS OF SOB, NAUSEA, VOMITTING THIS SHIFT. PATIENT HAS BEEN NPO THIS SHIFT.
--- NOTE | 2024-12-08 05:07 | NUR ---
NURSE NOTE ATTEMPTED TO CALL PROVIDER WITH NO SUCCESS. PATIENT HAVING CHEST PAIN. OBTAINING EKG PER ORDER.
[2024-12-08] MEDS ORDERED: Aminophylline 250MG / 10ML 10 ML Vial ONE (12:08)
--- NOTE | 2024-12-08 14:20 | NUR ---
PT REPORTING CHEST PAIN 4/10, USUALLY 1-2/[address] PEÑA NOTIFIED. VERBAL ORDER TO GIVE NITRO PER APR.
[2024-12-08] MEDS ORDERED: NS 250 ML IV ONE (14:31)
[2024-12-08] MEDS ORDERED: Verapamil HCL 2.5 MG/ML 2ML Injection ONE (14:31)
[2024-12-08] MEDS ORDERED: Heparin Sodium 1000 Units/ML 10ML MDV ONE (14:31)
[2024-12-08] MEDS ORDERED: Nitroglycerin 2 MG/20 ML BTL ONE (14:31)
[2024-12-08] MEDS ORDERED: NS 1,000 ML IV ONE ×2 (14:31→15:23)
--- NOTE | 2024-12-08 14:45 | NUR ---
NITRO GIVEN PER MAR WITH NO IMPROVEMENT TO CHEST PAIN. PT REPORTS HE WILL NOT TAKE ANY MORE NITRO.
--- NOTE | 2024-12-08 15:20 | NUR ---
PT TRANSFERED TO HEALTH EDUCATION DIRECTOR.
[2024-12-08] MEDS ORDERED: FentaNYL Citrate 50 MCG/ML 2 ML Injection ONE (15:23)
[2024-12-08] MEDS ORDERED: Midazolam HCl 1MG / ML 2ML Vial ONE (15:23)
--- NOTE | 2024-12-08 15:45 | NUR ---
FAMILY NOTIFIED OF PT'S TRANSFER TO STAFF NUCLEAR MEDICINE TECHNOLOGIST AND PCU 02 FOLLOWING PROCEDURE. REPORT CALLED TO KATHERINE PEÑALOZA.
[2024-12-08] MEDS ORDERED: Heparin Sodium,Porcine/0.5 NS 500 ML IV SCH (16:35)
[2024-12-08] MEDS ORDERED: NS 1,000 ML IV SCH (17:00)
[2024-12-08 17:23] LABS: Prothrombin Time Results 12.9 Sec (9.7-11.5)
--- NOTE | 2024-12-08 17:52 | NUR ---
PT ARRIVAL/SHIFT SUMMARY.... PT ARRIVED TO THE UNIT AT 1622 FROM THE LEAVE MANAGER. PT IS A&Ox4, PLEASENT AND COOPERATIVE WITH CARE. PT HAS TR BAND TO THE RIGHT WRIST WITH 10MLS OF AIR. NO SWELLING, BLEEING OR HEMATOMA NOTED TO THE SITE. THE PT'S RIGHT HAND IS PINK, WARM AND DRY PT DENIES PAIN. PT'S VS STABLE HE IS IN SRIN THE 80'S-90'S BP IS STABLE WITH SBPs 110'S-120'S MAPS>65. PT DENIES CHEST PAIN/PRESSURE AT REST BUT STATES THERE 1-2/10 PAIN/PRESSURE WITH DEEP BREATHS. NO EDEMA NOTED ON THIS ASSESSMENT. L/S CLEAR T/O ON RA WITH O2 SATS>95%. PULSES PALPABLE. PLANS FOR [place] TRANSFER PER PROVIDER.
--- NOTE | 2024-12-08 18:58 | NUR ---
CHEST PAIN.... PT IS C/O OF 5/10 CHEST PAIN WHICH INCREASED TO 6/10 DURING ASSESSMENT, THIS RN GAVE 1 SL TAB OF NITRO PER ORDERS AT 1854. SECOND NITRO DOSE GIVEN AT 1859. BP STABLE AFTER SECOND DOSE AT 123/96, HR SR IN THE 90'S. CHEST PAIN AT 1901 IS 1/10 AFTER 2 SL NITRO.
[2024-12-08] MEDS ORDERED: Nitroglycerin 1 INCH/GM PKT TOP ONE (19:10)
--- NOTE | 2024-12-08 19:22 | NUR ---
PT UDPATE... DR. BRICEÑO NOTIFIED OF THE PT'S CHEST PAIN AND SL NITRO, NEW ORDERS FOR NITRO PASTE GIVEN. REPORT GIVEN TO ONCOMING RN.
--- NOTE | 2024-12-08 22:49 | NUR ---
TRANSFER SUMMARY PT A/OX4, VSS, MAPS > 65, ON ROOM AIR SATS > 96%, NO C/O CP AT TIME OF TRANSFER, NITRO PASTE IN PLACE. AIR REMOVED FROM TR BAND AT 2230, NO OOZING, NO HEMATOMA, NO C/O PAIN. TR BAND STILL IN PLACE AND ARMBOARD LEFT ON. PT WAS ABLE TO STAND AND PIVOT TO GURNEY W/O ISSUE. REPORT CALLED TO RECEIVING RN, ALL QUESTIONS ANSWERED. PT HAS HEPARIN INFUSING AT 12U/KG AND NS AT 75ML/H X1 BAG. PT WAS ESCORTED OUT BY EMS WITH ALL BELONGINGS.
== END 2024-12-08 22:45 | disposition short-term general hospital (02) | DRG 287 ==
LOC: ER 14:30 → MEDS 14:31 → PCU 12-08 16:00 → ICUE 12-08 16:04
PROVIDERS: Emergency Medicine; ADMIT Student in an Organized Health Care Education/Training Program
PROC: B2111ZZ Fluoroscopy of Multiple Coronary Arteries using Low Osmolar Contrast (ICD-10-PCS; principal; 2024-12-06)
PROC: 3E02340 Introduction of Influenza Vaccine into Muscle, Percutaneous Approach (ICD-10-PCS; 2024-12-06)
DX: I25.110 Atherosclerotic heart disease of native coronary artery with unstable angina pectoris (principal); I50.32 Chronic diastolic (congestive) heart failure; K21.9 Gastro-esophageal reflux disease without esophagitis; I11.0 Hypertensive heart disease with heart failure; M19.90 Unspecified osteoarthritis, unspecified site; I48.0 Paroxysmal atrial fibrillation; N40.0 Benign prostatic hyperplasia without lower urinary tract symptoms; E78.5 Hyperlipidemia, unspecified; Z95.5 Presence of coronary angioplasty implant and graft; Z79.82 Long term (current) use of aspirin; Z79.899 Other long term (current) drug therapy; Z79.891 Long term (current) use of opiate analgesic; Z88.8 Allergy status to other drugs, medicaments and biological substances; Z88.1 Allergy status to other antibiotic agents; Z98.890 Other specified postprocedural states; Z87.891 Personal history of nicotine dependence; Z86.79 Personal history of other diseases of the circulatory system; Z23 Encounter for immunization
CPT/HCPCS: 36415; 71045; 76937; 78452; 80053; 82947; 83735; 83880; 84484; 85025; 85610; 93005; 93010; 93017; 93458; 96374; 99152; 99153; 99285-25; A9270; A9500; C1769; C1894; G0378; J0280; J0706; J1644; J2250; J2785; J3010; J7030; J7050; J7120; Q9967

== ENCOUNTER 2024-12-28 16:08 | Observation (INO) | payer OTHER ==
[2024-12-28] VITALS (7 sets, daily range): BP systolic 92–106; BP diastolic 59–81
[~2024-12-28] VITALS: Ht 170.2 cm; Wt 67.0 kg
[2024-12-28] MEDS ORDERED: JARDIANCE10 MG PO (16:30)
[2024-12-28] MEDS ORDERED: ATOR20 PO (16:30)
[2024-12-28] MEDS ORDERED: TOPROL XL25 MG PO (16:30)
[2024-12-28] MEDS ORDERED: TAMS.4ER PO (16:31)
[2024-12-28 16:37] LABS: BASOPHILS ABSOLUTE AUTO 0.03 K/mm3 (0.00-0.23); BASOPHILS PERCENT AUTO 0 % (0-2); EOSINOPHILS ABSOLUTE AUTO 0.14 K/mm3 (0.00-0.68); EOSINOPHILS PERCENT AUTO 2 % (0-6); Hematocrit 35.1 % (37.0-53.0); Hemoglobin 11.5 g/dL (13.5-17.5); IMMATURE GRAN ABSOLUTE AUTO 0.03 K/mm3 (0.00-0.10); IMMATURE GRAN PERCENT AUTO 0 % (0-1); LYMPHOCYTES ABSOLUTE AUTO 1.34 K/mm3 (0.84-5.20); LYMPHOCYTES PERCENT AUTO 15 % (21-46); MONOCYTES ABSOLUTE AUTO 0.99 K/mm3 (0.16-1.47); MONOCYTES PERCENT AUTO 11 % (4-13); Mean Corpuscular HGB Conc 32.8 g/dL (31.5-36.5); Mean Corpuscular Volume 89 fL (80-100); NEUTROPHILS ABSOLUTE AUTO 6.22 K/mm3 (1.96-9.15); NEUTROPHILS PERCENT AUTO 71 % (41-73); NRBC ABSOLUTE 0.00 K/mm3 (0.00-0.02); NRBC Auto 0.0 /100 WBC (0.0-0.2); Platelet Count 535 K/mm3 (150-400); RDW Coefficient Variation 13.2 % (11.7-14.2); RDW Standard Deviation 43.7 fL (35.1-46.3)
[2024-12-28] MEDS ORDERED: NS 1,000 ML IV SCH ×2 (16:50→21:30)
[2024-12-28 17:29] LABS: Alanine Aminotransfer (ALT/SGP 21.0 U/L (12-78); Albumin, Blood 3.3 g/dL (3.4-5.0); Albumin/Globulin Ratio 0.8 (0.8-1.8); Anion Gap 10.0 mmol/L (3-11); Aspartate Aminotrans (AST/SGOT 22.0 U/L (12-37); Bilirubin, Total 0.6 mg/dL (0.1-1.0); Blood Urea Nitrogen 14.0 mg/dL (8-24); CO2, Blood 26.0 mmol/L (21-32); Calcium, Blood 9.7 mg/dL (8.5-10.1); Chloride, Blood 102.0 mmol/L (98-108); Creatinine, Blood 0.72 mg/dL (0.60-1.20); Globulin, Blood 4.1 g/dL (2.2-4.0); Glucose, Blood 117.0 mg/dL (70-99); Potassium, Blood 4.0 mmol/L (3.5-5.5); Sodium, Blood 134.0 mmol/L (136-145); Total Protein, Blood 7.4 g/dL (6.4-8.2)
[2024-12-28] MEDS ORDERED: Metoprolol Tartrate 1 MG/ML 5 ML VIAL IV PRN (17:45)
[2024-12-28] MEDS ORDERED: Diltiazem HCl 5 MG / ML 5ML Vial IV ONE (19:20)
[2024-12-28] MEDS ORDERED: HYDROCODONE-AC1 EAC7 PO (20:29)
[2024-12-28] MEDS ORDERED: FLU VACC TS2025(65UP)/MF59C/PF 45 MCG/0.5 ML SYRINGE IM SCH (21:25)
[2024-12-28] MEDS ORDERED: Ondansetron HCl 2 MG / ML 2ML Vial IV PRN (21:30)
[2024-12-28] MEDS ORDERED: HYDROcodone 10-APAP 325 TAB PO ONE (22:00)
--- NOTE | 2024-12-28 23:00 | NUR ---
TRANSFER NOTE RECEIVED REPORT FROM ED RN AT 2220. PATIENT ARRIVED TO PCU AT 2230. HE TRANSFERED FROM [facility] TO BED WITH NURSE SBA, TOLERATED WELL. A/O X 4, SPEAKING IN COMPLETE SENTENCES AND FOLLOWS COMMANDS. AFIB 90-110s, DILTIAZEM INFUSING AT 10MG/HR. BLOOD PRESSURE 106/76. PATIENT DENIES CHEST PAIN/PRESSURE OR LIGHT HEADEDNESS. SPO2 >95% ON ROOM AIR. 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 BED LOCKED IN LOWEST POSITION AND CALL LIGHT WITHIN REACH.
[2024-12-28] MEDS ORDERED: PANTOPRAZOLE SO40 M2 PO (23:58)
[2024-12-29] VITALS (15 sets, daily range): BP systolic 80–120; BP diastolic 56–89
[2024-12-29 03:57] LABS: Hematocrit 33.6 % (37.0-53.0); Hemoglobin 10.8 g/dL (13.5-17.5); Mean Corpuscular HGB Conc 32.1 g/dL (31.5-36.5); Mean Corpuscular Volume 89 fL (80-100); NRBC ABSOLUTE 0.00 K/mm3 (0.00-0.02); NRBC Auto 0.0 /100 WBC (0.0-0.2); Platelet Count 458 K/mm3 (150-400); RDW Coefficient Variation 13.4 % (11.7-14.2); RDW Standard Deviation 44.1 fL (35.1-46.3)
[2024-12-29 04:26] LABS: Anion Gap 7.0 mmol/L (3-11); Blood Urea Nitrogen 12.0 mg/dL (8-24); CO2, Blood 26.0 mmol/L (21-32); Calcium, Blood 9.0 mg/dL (8.5-10.1); Chloride, Blood 105.0 mmol/L (98-108); Creatinine, Blood 0.68 mg/dL (0.60-1.20); Glucose, Blood 95.0 mg/dL (70-99); Magnesium, Blood 2.3 mg/dL (1.6-2.4); Potassium, Blood 4.2 mmol/L (3.5-5.5); Sodium, Blood 134.0 mmol/L (136-145)
--- NOTE | 2024-12-29 06:38 | NUR ---
SHIFT SUMMARY SEE PREVIOUS NOTES PATIENT A/O X 4, COOPERATIVE WITH CARE AND USES CALL LIGHT APPROPRIATELY. AFIB 110-120s, DILTIAZEM INFUSING AT 10MG/HR. BLOOD PRESSURES HAVE BEEN SOFT. DENIES CHEST PAIN/PRESSURE, LIGHT HEADEDNESS, OR DIZZINESS. SPO2 >95% ON ROOM AIR. PATIENT SBA TO BATHROOM, TOLERATES WELL. BOWEL TONES HYPOACTIVE, REPORTS LAST BM 12/27/24. NO ACUTE EVENTS THIS SHIFT. WILL GIVE REPORT TO ONCOMING RN. BED LOCKED IN LOWEST POSITION, CALL LIGHT WITHIN REACH.
[2024-12-29] MEDS ORDERED: Enoxaparin 40 MG/0.4 ML SYR SC SCH (09:00)
--- NOTE | 2024-12-29 09:15 | NUR ---
PT IS A&Ox4 AND ABLE TO MAKE NEEDS KNOWN. HE IS ON RA W/O2 SATS > 92%. HE IS A SBA FOR AMBULATION D/T IV LINES. DILTIAZEM GTT RUNNING @ 5ML/HR AND NS RUNNING PER EMAR. NO NEEDS OR CONCERNS NOTED @ THIS TIME. BED IN LOW POSITION, CALL LIGHT AND PERSONAL BELONGINGS IN REACH.
[2024-12-29] MEDS ORDERED: HYDROcodone 10-APAP 325 TAB PO PRN (11:55)
--- NOTE | 2024-12-29 12:00 | NUR ---
NOTIFIED THAT PT CONVERTED TO NSR @ APPROXIMATELY 1144AM.
--- NOTE | 2024-12-29 18:34 | NUR ---
ECHO COMPLETED AND DILTIAZEM GTT TURNED OFF DURING THIS SHIFT. PT RESTING IN BED WATCHING TV. NO NEEDS OR CONCERNS NOTED @ THIS TIME. BED IN LOW POSITION, CALL LIGHT AND PERSONAL BELONGINGS IN REACH.
--- NOTE | 2024-12-29 22:26 | NUR ---
ASSUMED CARE OF PATIENT AT 1900. PATIENT IS A/O X 4, COMMUNICATES NEED AND FOLLOWS COMMANDS. SINUS RHYTHM 80s, BP SOFT BUT STABLE. SPO2 >95% ON ROOM AIR, BREATHING EVEN AND UNLABORED. ABDOMEN SOFT AND NON TENDER, PATIENT REPORTS CONSTIPATION HAS RESOLVED. SBA TO BATHROOM FOR LINE MANAGEMENT. BED LOCKED IN LOWEST POSITION, CALL LIGHT WITHIN REACH.
[2024-12-30 04:03] VITALS: BP 121/71
--- NOTE | 2024-12-30 06:11 | NUR ---
SHIFT SUMMARY SEE PREVIOUS NOTE. PATIENT A/O X4, USES CALL LIGHT APPROPRIATELY AND FOLLOWS COMMANDS. REMAINS IN SINUS RHYTHM 80-90s. ALL VSS. PATIENT DENIES CHEST PAIN/PRESSURE OR PALPITATIONS. NO ACUTE EVENTS OVERNIGHT. BED LOCKED IN LOWEST POSITION, CALL LIGHT WITHIN REACH. WILL GIVE REPORT TO ONCOMING RN.
[2024-12-30 07:21] VITALS: BP 123/76
[2024-12-30] MEDS ORDERED: METO25 PO (10:53)
[2024-12-30 11:30] VITALS: BP 106/74
--- NOTE | 2024-12-30 12:51 | NUR ---
SHIFT SUMMARY/ DISCHARGE NOTE: NO SIGNIFICANT EVENTS. HAPPENED DURING THIS SHIFT. PT REMAINS FREE OF ANY COMPLAINTS. PT WAS DIACHARGED TO HOME IN NO ACUTE STRESS AT THIS TIME. PT WAS GIVEN WRITTEN AND VERBAL DC INSTRUCTIONS. DENIES ANY QUESTIONS OR CONCERS. IV REMOVED WITH CATHETER INTACT. PT DISCHARGED VIA WHEELCHAIR. TO RIDE.
== END 2024-12-30 11:55 | disposition home or self-care (01) ==
LOC: ER 16:08 → PCU 16:09
PROVIDERS: Nurse Practitioner Acute Care; Physician Assistant; ADMIT Internal Medicine
DX: I48.0 Paroxysmal atrial fibrillation (principal); E78.5 Hyperlipidemia, unspecified; I25.10 Atherosclerotic heart disease of native coronary artery without angina pectoris; Z88.1 Allergy status to other antibiotic agents; Z88.8 Allergy status to other drugs, medicaments and biological substances; Z91.0110 Allergy to milk products, unspecified; I50.30 Unspecified diastolic (congestive) heart failure; I11.0 Hypertensive heart disease with heart failure; Z87.891 Personal history of nicotine dependence
CPT/HCPCS: 36415; 71045; 80048; 80053; 83735; 84443; 84484; 85025; 85027; 93005; 93010; 93306; 96365; 96366; 96372; 96375; 96376; 99285-25; A9270; G0378; J1650; J7030